=== PATIENT | male | born 1980 | race Caucasian/White ===

== ENCOUNTER 2019-07-07 11:07 | Emergency (ER) | payer BC ==
[~2019-07-07] VITALS: Ht 167.6 cm; Wt 83.4 kg
[2019-07-07 11:46] LABS: BASO % 1 % (0-3); EOS # 0.1 x10^3/uL (0.0-0.7); EOS % 2 % (0-3); HEMATOCRIT 49.7 % (39.0-53.0); HEMOGLOBIN 17.3 g/dL (13.0-17.5); LYMPH # 1.8 x10^3/uL (1.0-4.8); LYMPH % 22 % (24-48); MEAN CORPUSCULAR HEMOGLOBIN 33 pg (25-35); MEAN CORPUSCULAR HGB CONC 35 g/dL (31-37); MEAN CORPUSCULAR VOLUME 93 fL (79-100); MONO # 0.8 x10^3/uL (0.0-1.1); MONO % 10 % (0-9); NEUT # 5.4 x10^3/uL (1.8-7.7); NEUT % 66 % (31-73); PLATELET COUNT 287 x10^3/uL (140-400); RED BLOOD COUNT 5.34 x10^6/uL (4.30-5.70); RED CELL DISTRIBUTION WIDTH 12.6 % (11.5-14.5); WHITE BLOOD COUNT 8.2 x10^3/uL (4.0-11.0)
[2019-07-07 11:53] LABS: PARTIAL THROMBOPLASTIN TIME 30 SEC (24-38); PROTHROMBIN TIME PATIENT 12.3 SEC (11.7-14.0)
--- NOTE | 2019-07-07 11:56 | RAD ---
Two-view chest dated 07/07/2019. No comparison available. Clinical indication: Chest pain. FINDINGS: PA and lateral views the chest were obtained. Heart and mediastinal contours are within normal limits. Lungs are clear. No consolidation or pleural effusion. No pneumothorax. IMPRESSION: No acute radiographic abnormality. Electronically signed by: Guerrero Mcghee MD (07/07/2019 11:53 AM) [id number]
[2019-07-07 11:59] LABS: CALCIUM 9.7 mg/dL (8.5-10.1); CREATININE 1.1 mg/dL (0.7-1.3); GFR 75.3; POTASSIUM 4.2 mmol/L (3.5-5.1)
[2019-07-07 12:02] LABS: D-DIMER < 0.27 ug/mlFEU (0.00-0.50)
[2019-07-07 12:04] LABS: ALBUMIN 4.4 g/dL (3.4-5.0); ALBUMIN/GLOBULIN RATIO 1.6 (1.0-1.7); TOTAL BILIRUBIN 0.7 mg/dL (0.2-1.0); TOTAL PROTEIN 7.2 g/dL (6.4-8.2)
--- NOTE | 2019-07-07 12:05 | EKG ---
[facility] [address] [place] [address] Test Date: 2019-07-07 Test Time: 11:16:08 Pat Name: SP FRIEDMAN Department: Room: Gender: Passenger Screener: : 1980 Requested By: ÁNGEL GRIJALVA Order Number: [id number] Reading MD: Measurements Intervals [place] Rate: 81 P: 31 CO: 162 QRS: -27 QRSD: 96 T: 24 QT: 336 QTc: 395 Interpretive Statements SINUS RHYTHM LEFTWARD AXIS R-S TRANSITION ZONE IN V LEADS DISPLACED TO THE LEFT INCOMPLETE RIGHT BUNDLE BRANCH BLOCK NON SPECIFIC ST-T ABNORMALITY (ELEVATION) OTHERWISE NORMAL ECG No previous ECG available for comparison
--- NOTE | 2019-07-07 12:27 | PHYS DOC ---
Past Medical History Past Medical History: No Pertinent History Additional Past Surgical Histo: L WRIST LIGAMENT RECON. Smoking Status: Never Smoker Alcohol Use: Occasionally Adult General Chief Complaint Chief Complaint: CHEST PAIN HPI HPI Patient is a 38 year old male who presents to the emergency department with co mplaints of pain in his left shoulder that now radiates to his left chest since yesterday. He states that the pain is in his left anterior chest, and increases with movement and palpation. He denies any recent cough, congestion, nausea, vomiting, diarrhea, abdominal pain, diaphoresis, swelling of extremities, fever, palpitations, or wheezing. Patient states that when he takes a deep breath the pain is so severe that it takes his breath away. He denies any shortness of breath. Patient denies any family cardiac history, smoking, drug use, or previous medical history. He denies any recent injury or heavy lifting. Currently, he rates his pain a 10 out of 10 on the pain scale, he denies any alleviating factors, the pain worsens when the area is touched or he takes a deep breath. Patient denies any recently travel via car or flight. Review of Systems Review of Systems All other ROS is negative unless otherwise noted in HPI. Physical Exam Physical Exam See Above Constitutional: Well developed, well nourished, no acute distress, non-toxic appearance. [] HENT: Normocephalic, atraumatic, bilateral external ears normal, nose normal. [] Eyes: PERRLA, EOMI, conjunctiva normal, no discharge. [] Neck: Normal range of motion, no stridor. [] Cardiovascular:Heart rate regular rhythm, no murmur [] Lungs & Thorax: Bilateral breath sounds clear to auscultation, Respirations even and unlabored, no retractions, no respiratory distress; left anterior chest wall tenderness to palpation, no crepitus, no subcutaneous emphysema [] Abdomen: soft, no tenderness Skin: Warm, dry, no erythema, no rash. [] Back: No tenderness Extremities: No cyanosis, ROM intact, no edema. [] Neurologic: Alert and oriented X 3, no focal deficits noted. [] Psychologic: Affect normal, judgement normal, mood normal. [] Current Patient Data Vital Signs Vital Signs Date Time Temp Pulse Resp B/P (MAP) Pulse Ox O2 Delivery O2 Flow Rate FiO2 07/07/19 11:14 98.0 90 18 163/105 (124) 98 Room Air 98.0 Lab Values Laboratory Tests Test 07/07/19 11:20 White Blood Count 8.2 x10^3/uL (4.0-11.0) Red Blood Count 5.34 x10^6/uL (4.30-5.70) Hemoglobin 17.3 g/dL (13.0-17.5) Hematocrit 49.7 % (39.0-53.0) Mean Corpuscular Volume 93 fL (79-100) Mean Corpuscular Hemoglobin 33 pg (25-35) Mean Corpuscular Hemoglobin Concent 35 g/dL (31-37) Red Cell Distribution Width 12.6 % (11.5-14.5) Platelet Count 287 x10^3/uL (140-400) Neutrophils (%) (Auto) 66 % (31-73) Lymphocytes (%) (Auto) 22 % (24-48) L Monocytes (%) (Auto) 10 % (0-9) H Eosinophils (%) (Auto) 2 % (0-3) Basophils (%) (Auto) 1 % (0-3) Neutrophils # (Auto) 5.4 x10^3/uL (1.8-7.7) Lymphocytes # (Auto) 1.8 x10^3/uL (1.0-4.8) Monocytes # (Auto) 0.8 x10^3/uL (0.0-1.1) Eosinophils # (Auto) 0.1 x10^3/uL (0.0-0.7) Basophils # (Auto) 0.0 x10^3/uL (0.0-0.2) Prothrombin Time 12.3 SEC (11.7-14.0) Prothrombin Time INR 0.9 (0.8-1.1) Activated Partial Thromboplast Time 30 SEC (24-38) D-Dimer (Erin) < 0.27 ug/mlFEU Sodium Level 139 mmol/L (136-145) Potassium Level 4.2 mmol/L (3.5-5.1) Chloride Level 101 mmol/L (98-107) Carbon Dioxide Level 29 mmol/L (21-32) Anion Gap 9 (6-14) Blood Urea Nitrogen 13 mg/dL (8-26) Creatinine 1.1 mg/dL (0.7-1.3) Estimated GFR (Cockcroft-Gault) 75.3 BUN/Creatinine Ratio 12 (6-20) Glucose Level 86 mg/dL (70-99) Calcium Level 9.7 mg/dL (8.5-10.1) Total Bilirubin 0.7 mg/dL (0.2-1.0) Aspartate Amino Transferase (AST) 44 U/L (15-37) H Alanine Aminotransferase (ALT) 118 U/L (16-63) H Alkaline Phosphatase 88 U/L (46-116) Creatine Kinase 141 U/L (39-308) Creatine Kinase MB (Mass) 1.3 ng/mL (0.0-3.6) Creatine Kinase MB Relative Index 0.9 % (0-4) Troponin I Quantitative < 0.017 ng/mL (0.000-0.055) Total Protein 7.2 g/dL (6.4-8.2) Albumin 4.4 g/dL (3.4-5.0) Albumin/Globulin Ratio 1.6 (1.0-1.7) Laboratory Tests 07/07/19 11:20 Laboratory Tests 07/07/19 11:20 EKG EKG 1116 SR rate 82, incomplete RBBB, NO STEMI read by Dr. Soler[] Radiology/Procedures Radiology/Procedures PROCEDURE: CHEST PA & LATERAL Two-view chest dated 07/07/2019. No comparison available. Clinical indication: Chest pain. FINDINGS: PA and lateral views the chest were obtained. Heart and mediastinal contours are within normal limits. Lungs are clear. No consolidation or pleural effusion. No pneumothorax. IMPRESSION: No acute radiographic abnormality.[] Course & Med Decision Making Course & Med Decision Making Pertinent Labs and Imaging studies reviewed. (See chart for details) Patient is a 38-year-old male who presented to the emergency room with complaints of chest pain that was worse with palpation and inspiration since yesterday. CBC was unremarkable, CMP was unremarkable, CK and troponin were within normal limits. Chest x-ray was unremarkable. Patient's vital signs were stable. The left-sided chest pain is reproducible with palpation and cough, most likely costochondritis. We'll prescribe the patient naproxen to take twice daily for 10 days. Encouraged him to follow up with primary care doctor, return to the ER if symptoms worsen. Patient verbalized an understanding of home care, medications, follow-up, and return to ED instructions and was in agreement with the plan of care. [] Dragon Disclaimer Dragon Disclaimer This electronic medical record was generated, in whole or in part, using a voice recognition dictation system. Departure Departure Impression: Primary Impression: Acute costochondritis Disposition: HOME, SELF-CARE Condition: STABLE Referrals: NO PCP (PCP) Patient Instructions: Costochondritis, [id number] Additional Instructions: Fill the prescription and take it as directed. Avoid airway irritants such as smoke, perfumes, candles, and animal dander. Follow up with your primary care doctor this week. Return to the ER if symptoms worsen. Scripts Naproxen (NAPROXEN) 500 Mg Tablet 1 TAB PO BID PRN for PAIN for 10 Days, #20 TAB 0 Refills Prov: ÁNGEL GRIJALVA APRN 07/07/19 The HEART Score for CP Pts HEART Score for Chest Pain: HEART Score for Chest Pain Response (Comments) Value History Slighlty/Non-Suspicious 0 ECG Normal 0 Age < 45 0 Risk Factors 1 or 2 Risk Factors 1 Troponin < Normal Limit 0 Total 1 Risk Factors: Risk Factors: DM, Current or recent (<one month) smoker, HTN, HLP, family history of CAD, obesity. Risk Scores: Score 0 - 3: 2.5% MACE over next 6 weeks - Discharge Home Score 4 - 6: 20.3% MACE over next 6 weeks - Admit for Clinical Observation Score 7 - 10: 72.7% MACE over next 6 weeks - Early Invasive Strategies ÁNGEL GRIJALVA APRN Jul 07, 2019 12:26
[2019-07-07] MEDS ORDERED: NAPR-514 PO (13:25)
[2019-07-07 13:30] VITALS: BP 142/87
== END 2019-07-07 13:36 | disposition home or self-care (01) ==
LOC: ER 11:07
DX: M94.0 Chondrocostal junction syndrome [Tietze] (principal); M25.512 Pain in left shoulder; R07.89 Other chest pain; Z98.890 Other specified postprocedural states
CPT/HCPCS: 36415; 71046; 80053; 82553; 84484; 85025; 85379; 85610; 85730; 93005; 99285